=== PATIENT | male | born 1955 | race Caucasian/White ===

== ENCOUNTER 2016-12-30 08:32 | Inpatient (IN) | payer MEDICARE, MEDICAID ==
[~2016-12-30] VITALS: Ht 190.5 cm; Wt 93.5 kg
--- NOTE | ~2016-12-30 | DS ---
PATIENT'S NAME: JOSEE MEIER [facility] AGE: 61 Y [address] ROOM: [place] [address] LOCATION: [facility] ADMIT DATE: 12/30/2016 Discharge Summary DISCHARGE DATE: 01/01/2017 FAMILY PHYSICIAN: Shawn Perez MD ATTENDING PHYSICIAN: Delvin Velásquez DISCHARGE SUMMARY: This 61-year-old gentleman was admitted electively for replacement of the baclofen pump. He was taken to the operating room on the day of admission and had the surgery done uneventfully under general anesthesia. However, postop, his ventilation was not adequate for him to be extubated. Consequently, he was admitted to the ICU and ventilated till the following morning. The following morning, his ventilation had improved. He was consequently extubated and transferred to the neurotrauma unit, where he stayed until his discharge. Post-extubation, he got back to his normal self and was consequently discharged to the half-way. He is to be seen by me in the clinic in 3 weeks from the time of discharge, and he is to have his stitches removed in 2 weeks from the time of discharge. FINAL DIAGNOSIS: Spasticity. DELVIN VELÁSQUEZ MD AEB/modl /[id number] d: 01/02/17 0024 t: 01/06/17 1051, DISCHARGE SUMMARY
--- NOTE | ~2016-12-30 | OR ---
PATIENT'S NAME: JOSEE MEIER [facility] AGE: 61 Y [address] ROOM: [place] [address] LOCATION: GICU ADMIT DATE: 12/30/2016 OR/Procedure Report DISCHARGE DATE: FAMILY PHYSICIAN: Shawn Perez MD ATTENDING PHYSICIAN: Ashish Aviles SURGEON: Ashish Aviles MD AIR HOLE DRILLER: DATE OF PROCEDURE: 12/30/2016 PREOPERATIVE DIAGNOSIS: Spasticity. POSTOPERATIVE DIAGNOSIS: Spasticity. OPERATION PROPOSED AND PERFORMED: Replacement of baclofen pump using the SynchroMed II pump. DESCRIPTION OF PROCEDURE: Under general anesthesia, the patient was positioned supine. The abdomen was prepped and draped in the usual fashion. The suprapubic catheter was covered with a dressing. Next, the abdomen was then prepped and draped in the usual fashion. The old incision was opened. It was directly over the previous baclofen pump, and the baclofen pump was then dug out of its pseudocapsule. After this was done, the new pump was primed. Post priming, it was filled with 40 mL of baclofen, and it was then connected to the catheter. Prior to that, there was some fluid egressing from the catheter. The wound was thoroughly irrigated with bacitracin irrigation, and the pump was then put back into the cavity where the previous one was. WOUND CLOSURE: The incision was then closed in two layers. POSTOPERATIVE CONDITION: The patient tolerated the procedure well, and was taken to the Recovery Room. MD SHAYNE MCCOY/kaitlinl /[id number] d: 12/30/161943 t: 01/01/170, OPERATIVE SUMMARY
[~2016-12-30 08:32] MED LIST: ALLERGY MEDICAT25 M1 PO; CELEXA40 MG PO; DULCOLAX10 MG R; KCL UD LIQ20 MEQ/15 PO; LASIX20 MG PO; MILK OF MA400 MG/5 M PO; MOUTH CLEANSER15 ML PO; NEXIUM40 MG PO; POLYMYXIN B-TMP10 ML OPHTH; PRO-STAT MAX L887 ML PO; PROAMATINE5 MG PO; THERAGRAN-M1 TAB PO; TYLENOL ARTHRI650 MG PO; VALIUM5 MG PO; VESICARE10 MG PO; [UNRECOGNIZED DRUG - OTHER] TOP
[2016-12-30 17:58] LABS: BASOPHIL % 0.1 %; HEMATOCRIT 41.5 % (37.0-53.0); HEMOGLOBIN 12.5 g/dL (11.0-16.0); IMMATURE GRANULOCYTE % 0.3 %; LYMPHOCYTE # 0.5 K/uL (0.8-4.0); LYMPHOCYTE % 4.9 %; MCH 25.8 pg (27.0-34.0); MCHC 30.1 gm/dL (32.0-36.5); MCV 85.7 fl (83.0-98.0); MONOCYTE # 0.1 K/uL (0.0-1.0); MONOCYTE % 1.4 %; NEUTROPHIL # (ANC) 9.7 K/uL (1.4-9.0); NEUTROPHIL % 93.3 %; NRBC % 0 /100WBC (0-0.00); PLATELET COUNT 364 K/uL (150-450); RBC 4.84 M/uL (3.50-5.50); RDW-CV 15.7 % (11.9-14.6); WBC 10.3 K/uL (4.0-11.0)
[2016-12-30 18:13] LABS: ANION GAP 11.3 (10.0-19.0); BLOOD UREA NITROGEN 30 mg/dL (6-24); CALCIUM 7.9 mg/dL (8.5-10.5); CHLORIDE 104 mMol/L (96-110); CO2 30 mMol/L (22-32); ESTIMATED GFR (MDRD EQUATION) > 60; POTASSIUM 4.3 mMol/L (3.7-5.1); SODIUM 141 mMol/L (135-145)
--- NOTE | 2016-12-31 03:29 | NUR ---
SIGNIFICANT EVENT: PT PLACED IN A/C MODE AT BEGINNING OF SHIFT DUE TO PERIODS OF APNEA. PT WILL OVERBREATHE BUT AT TIMES RESTS AT VENT RATE. VSS ON 30% FIO2 PEEP 5. RESTRAINT PLACED TO L ARM DUE TO PATIENT ATTEMPTING TO PULL OUT ET TUBE. FOLLOW UP:
[2016-12-31 03:49] LABS: BICARBONATE 29.7 mmol/L (18.0-23.0); PCO2 48 mmHg (35-45); PO2 79 mmHg (80-90)
[2016-12-31 05:35] LABS: BASOPHIL % 0.2 %; EOSINOPHIL % 0.1 %; HEMATOCRIT 37.5 % (37.0-53.0); HEMOGLOBIN 11.6 g/dL (11.0-16.0); IMMATURE GRANULOCYTE # 0.1 K/uL (0.0-0.3); IMMATURE GRANULOCYTE % 0.7 %; LYMPHOCYTE # 1.5 K/uL (0.8-4.0); LYMPHOCYTE % 15.9 %; MCHC 30.9 gm/dL (32.0-36.5); MCV 84.1 fl (83.0-98.0); MONOCYTE % 10.3 %; MPV 9.8 fl (9.4-12.4); NEUTROPHIL # (ANC) 6.7 K/uL (1.4-9.0); NEUTROPHIL % 72.8 %; NRBC % 0 /100WBC (0-0.00); PLATELET COUNT 355 K/uL (150-450); RBC 4.46 M/uL (3.50-5.50); RDW-CV 15.7 % (11.9-14.6); WBC 9.2 K/uL (4.0-11.0)
[2016-12-31 05:47] LABS: ALBUMIN 2.8 gm/dL (3.5-5.0); ALK PHOS 159 IU/L (33-138); ALT 17 IU/L (12-78); ANION GAP 13.9 (10.0-19.0); AST 18 IU/L (10-40); BLOOD UREA NITROGEN 26 mg/dL (6-24); CALCIUM 7.7 mg/dL (8.5-10.5); CHLORIDE 107 mMol/L (96-110); CO2 27 mMol/L (22-32); CREATININE 0.9 mg/dL (0.6-1.3); ESTIMATED GFR (MDRD EQUATION) > 60; POTASSIUM 3.9 mMol/L (3.7-5.1); SODIUM 144 mMol/L (135-145); TOTAL BILIRUBIN 0.3 mg/dL (0.0-1.5); TOTAL PROTEIN 7.3 g/dL (6.0-8.4)
--- NOTE | 2016-12-31 12:20 | NUR ---
Introduced self and care management services to patient family at bedside. Lives at [facility], will go back there on discharge. They deny concerns for me today. I called Jeanne at [facility] and gave her an update of pt condition, will let her know when pt ready for dc.
--- NOTE | 2016-12-31 14:37 | NUR ---
Significant Event: PT alert, oriented to self. VSS, on room air. IV patent to L)hand. Denies pain. Suprapubic cath intact, good output. PT repositioned frequently. Up to wheelchair with lift. Pureed diet, regular liquids. Meds crushed and given with applesauce. Follow up:
--- NOTE | 2016-12-31 15:57 | NUR ---
Significant Event:PT IS ALERT TO SELF AND TOWN. ON RA. ACTIVE BS. BOWEL PROGRAM ON FRIDAY, FRIDAY, AND FRIDAY. TRANSFER FROM ICU HYPERTENSIVE. CALLED MD. ORDERED TO CONTINUE MONITORING. IV L) HAND SL'D. SUPRAPUBIC CATH. 2A FULL LIFT. PLANS TO RETURN TO [facility] TOMORROW. LYNG TO RLQ. SHADOW DRAINAGE NOTED Follow up:
--- NOTE | 2017-01-01 04:26 | NUR ---
Significant Event: Patient is alert to self and town. VSS on room air. Able to move left arm to command and grasp hand. Able to wiggle left fingers. Legs move to painful stimuli. Lungs clear and diminished. Suprapubic catheter. Dressing to right abdomen with shadow drainage. Coccyx red - aloe vista applied. Patient has bowel program Ovbnds-Yffhomrvz-Icgwoe. Takes meds crushed in applesauce. Bowel sounds active - Clear liquid diet. Working up to pureed diet with thin liquids. Left hand IV saline locked. Full lift. Q2 ojeda. No complaints of pain. Follow up: [facility] today.
--- NOTE | 2017-01-01 11:28 | NUR ---
Pt nurse called and pt will be ready for dc to [facility] today, she is calling Dr Aviles to round to see and write orders. I called [facility] and talked with Amado, they will come get pt at 1330. Called pt nurse Estrella and let her know that. Will not be skilled stay, resides at [facility].
--- NOTE | 2017-01-01 12:59 | NUR ---
Significant Event: PT ALERT TO SELF/BIRTHDAY/TOWN. VITAL SIGNS STABLE; ON ROOM AIR. HAS BEEN UP IN HIS WHEELCHAIR SINCE BREAKFAST. FULL LIFT/2-ASSIST. TAKES MEDICATIONS CRUSHED IN APPLESAUCE. 1:1 FEEDER FOR MEALS. SUPRAPUBIC CATH INTACT DRAINING YELLOW URINE. DRESSING TO RLQ INTACT; SHADOW DRAINAGE NOTED. NO COMPLAINTS OF PAIN THIS SHIFT. Follow up: PLAN TO TRANSFER BACK TO [facility] ABOUT 1330 TODAY; TRANSFER PACKET WILL BE SENT WITH [facility]MER.
== END 2017-01-01 13:41 | DRG 166 ==
LOC: GNTU 08:32 → GSDC 08:32 → GPOC 14:00 → GICU 16:12 → GSDC 16:13 → GICU 17:48 → GNTU 12-31 14:44
PROVIDERS: Anesthesiology Critical Care Medicine; ADMIT Neurological Surgery
PROC: 0JPT0VZ Removal of Infusion Pump from Trunk Subcutaneous Tissue and Fascia, Open Approach (ICD-10-PCS; principal; 2016-12-30)
PROC: 0JH80VZ Insertion of Infusion Pump into Abdomen Subcutaneous Tissue and Fascia, Open Approach (ICD-10-PCS; principal; 2016-12-30)
PROC: 5A1935Z Respiratory Ventilation, Less than 24 Consecutive Hours (ICD-10-PCS; 2016-12-30)
DX: J95.821 Acute postprocedural respiratory failure (principal); G82.50 Quadriplegia, unspecified; Z45.49 Encounter for adjustment and management of other implanted nervous system device; T14.8 Other injury of unspecified body region; V89.2XXS Person injured in unspecified motor-vehicle accident, traffic, sequela; Z85.528 Personal history of other malignant neoplasm of kidney; Z90.5 Acquired absence of kidney; Z93.50 Unspecified cystostomy status; K21.9 Gastro-esophageal reflux disease without esophagitis; Z23 Encounter for immunization; Y83.8 Other surgical procedures as the cause of abnormal reaction of the patient, or of later complication, without mention of misadventure at the time of the procedure
CPT/HCPCS: C1772; C9113; J0330; J0475; J0690; J1100; J1650; J2001; J2405; J2704; J2765; J7030; J7040

== ENCOUNTER → 2017-05-23 | Outpatient (CLI) | payer MEDICARE, MEDICAID | END | disposition disaster alternative care site (69) | LOC: GRAD 14:03 | DX: C64.9 Malignant neoplasm of unspecified kidney, except renal pelvis (principal); Q61.02 Congenital multiple renal cysts; Z98.890 Other specified postprocedural states | CPT/HCPCS: Q9967 ==